=== PATIENT | female | born 2005 | race Caucasian/White ===

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

== ENCOUNTER 2024-01-01 19:03 | Emergency (ER) | payer MEDICAID ==
[~2024-01-01] VITALS: Ht 165.1 cm; Wt 86.4 kg
[2024-01-01 19:12] VITALS: BP 130/79; TEMP 98.4
[2024-01-01 20:08] LABS: STREP A NEGATIVE
[2024-01-01] MEDS ORDERED: Acetaminophen 500 MG TAB PO ONE (21:00)
[2024-01-01 21:20] VITALS: PULSE 92
== END 2024-01-01 21:20 | disposition home or self-care (01) ==
LOC: COL.ER 19:03
PROVIDERS: Nurse Practitioner Primary Care
DX: J06.9 Acute upper respiratory infection, unspecified (principal); B97.89 Other viral agents as the cause of diseases classified elsewhere; F17.200 Nicotine dependence, unspecified, uncomplicated; Z20.822 Contact with and (suspected) exposure to COVID-19